=== PATIENT | male | born 1970 | race Caucasian/White ===

== ENCOUNTER 2016-08-18 21:40 | Emergency (ER) | payer OTHER ==
[~2016-08-18] VITALS: Ht 180.3 cm; Wt 84.4 kg
--- NOTE | 2016-08-18 22:25 | NUR ---
PT BIB SELF C/O DIARRHEA AND DIFFUSE ABD PAIN X1 WEEK. DENIES N/V. DENIES BLOOD IN STOOL. NAD NOTED. RESP EVEN UNLABORED. SKIN WARM NONDIAPHORETIC. IN ER BED 10.
[2016-08-18] MEDS ORDERED: HYDROMORPHONE INJ 2 MG/ML DISP.SYRIN IV ONE (23:00)
[2016-08-18] MEDS ORDERED: IV NS 0.9% 1,000 ML ONE (23:02)
[2016-08-18] MEDS ORDERED: IV SET PRIMARY 1 EA INFUS.SET MC ONE (23:02)
[2016-08-18] MEDS ORDERED: ONDANSETRON HCL/PF 4 MG/2 ML VIAL ONE (23:02)
[2016-08-18] MEDS ORDERED: HYDROMORPHONE 1 MG/1 ML DISP.SYRIN ONE (23:02)
[2016-08-18 23:21] LABS: BASOPHILS % (AUTO) 0.5 % (0.0-2.0); CALCIUM, SERUM 8.9 mg/dL (8.5-10.1); CARBON DIOXIDE 31 mmol/L (21-32); CHLORIDE 105 mmol/L (98-107); EOSINOPHILS % (AUTO) 0.8 % (0.0-6.0); GFR 80 mL/min (>60); GLUCOSE 111 mg/dL (74-106); HEMATOCRIT 45 % (39-51); LYMPHOCYTES % (AUTO) 33.1 % (20.0-44.0); MEAN CORPUSCULAR HEMOGLOBIN 29 PG (26.0-33.0); MEAN CORPUSCULAR HGB CONC 34 g/dl (31.0-36.0); MEAN CORPUSCULAR VOLUME 85 fL (80-96); MONOCYTES # (AUTO) 1.6 /CMM (0.1-1.30); MONOCYTES % (AUTO) 26.4 % (2.0-12.0); NEUTROPHILS # (AUTO) 2.4 /CMM (1.8-8.9); NEUTROPHILS % (AUTO) 39.2 % (43.0-81.0); PLATELET COUNT (AUTO) 262 /CMM (150-450); POTASSIUM 3.1 mmol/L (3.5-5.1); RDW COEFFICIENT OF VARIATION 13.1 (11.5-15.0); RED BLOOD CELL COUNT(AUTO) 5.23 MIL/uL (4.5-6.0); SODIUM SERUM 142 mmol/L (136-145); UREA NITROGEN, BLOOD 11 mg/dL (7-18); WHITE BLOOD COUNT (AUTO) 6.1 K/uL (4.3-11.0)
[2016-08-18 23:22] LABS: INR 1.01 (0.87-1.13); PROTHROMBIN TIME 10.8 SECS (9.5-12.7)
[2016-08-18 23:26] LABS: ALANINE AMINOTRANSFERASE 51 U/L (12-78); ALBUMIN 3.3 g/dL (3.4-5.0); ALKALINE PHOSPHATASE 74 U/L (46-116); ASPARTATE AMINOTRANSFERASE 28 U/L (15-37); BILIRUBIN,DIRECT 0.1 mg/dL (0.0-0.2); BILIRUBIN,TOTAL 0.4 mg/dL (0.2-1.0); LIPASE 147 U/L (73-393); TOTAL PROTEIN, SERUM 7.3 g/dL (6.4-8.2)
[2016-08-18 23:28] LABS: TROPONIN I < 0.017 ng/mL (0.00-0.056)
[2016-08-18] MEDS: IV NS 0.9% 1,000 ML BAG IV ONE (23:34)
[2016-08-18] MEDS: ONDANSETRON HCL/PF 4 MG/2 ML VIAL IVP ONE (23:34)
--- NOTE | 2016-08-18 23:35 | NUR ---
PT REFUSED DILAUDID AFTER HIS CALLED AND SPOKE WITH THE PT AND MYSELF VIA SPEAKERPHONE REQUESTING A NORCO INSTEAD OF IV PAIN MEDICATION. I EXPLAINED MULTIPLE TIMES THAT I COULD NOT WITHHOLD PAIN MEDICATION BECAUSE OF THE 'S REQUEST ALONE BUT IF THE PT CONSENTED TO PO MEDICATION IN LIEU OF IV, THAT WOULD LIKELY BE HONORED BY DR SHERIFF. PT THEN CONSENTED TO RECEIVING NORCO INSTEAD OF DILAUDID.
[2016-08-18] MEDS ORDERED: HYDROCODONE/APAP 5/325MG 1 EACH TABLET ONE (23:38)
[2016-08-18] MEDS: HYDROCODONE/APAP 5/325MG 1 EACH TABLET PO ONE (23:42)
--- NOTE | 2016-08-18 23:42 | NUR ---
PT RECIEVED PRANAY PER VERBAL ORDER
[2016-08-19] MEDS ORDERED: HYDROCODONE/APAP 10/325MG 1 EA TABLET PO ONE
[2016-08-19] MEDS: POTASSIUM CHLORIDE 20 MEQ TAB.PRT.SR PO ONE (00:09)
--- NOTE | 2016-08-19 00:09 | NUR ---
PT REFUSED POTASSIUM DESPITE EDUCATION. IV removed. Catheter intact and site benign. Pressure and 4x4 applied to site. No bleeding noted. Patient discharged to home in stable condition. Written and verbal after care instructions given. Patient verbalizes understanding of instruction. AMBULATORY WITH STEADY GAIT.
[2016-08-19 00:30] VITALS: BP 126/75
[2016-08-19 00:52] LABS: BAND % (MANUAL) 14 % (0.0-5.0); EOSINOPHILS % (MANUAL) 1 % (0-4); LYMPHOCYTES % (MANUAL) 48 % (16-48); MONOCYTES % (MANUAL) 23 % (0-11.0); NEUTROPHILS % (MANUAL) 14 (42-76)
== END 2016-08-19 00:31 | disposition home or self-care (01) ==
LOC: ER 21:40
DX: R10.84 Generalized abdominal pain (principal); R19.7 Diarrhea, unspecified; F31.9 Bipolar disorder, unspecified; J45.909 Unspecified asthma, uncomplicated
CPT/HCPCS: 36415; 76705-TC; 80048-TC; 80076-TC; 83690-TC; 84484-TC; 85025-TC; 85730-TC; A4606; J1170; J2405; J7030; Z7610

== ENCOUNTER 2025-01-25 16:45 | Emergency (ER) | payer MEDICARE, OTHER ==
[~2025-01-25] VITALS: Ht 180.3 cm; Wt 82.6 kg
[2025-01-25] MEDS ORDERED: LORAZEPAM 1 MG TABLET ONE (17:10)
[2025-01-25] MEDS: LORAZEPAM 1 MG TABLET PO ONE (17:15)
[2025-01-25] MEDS ORDERED: ESCI5TAB PO (17:19)
[2025-01-25 17:28] VITALS: BP 142/88; TEMP 97.8; O2SAT 97
[2025-01-25] MEDS ORDERED: ONDANSETRON 4 MG TAB.RAPDIS SL ONE (17:30)
== END 2025-01-25 17:28 | disposition home or self-care (01) ==
LOC: ER 16:45
DX: R45.83 Excessive crying of child, adolescent or adult (principal); F31.9 Bipolar disorder, unspecified; F41.9 Anxiety disorder, unspecified; J45.909 Unspecified asthma, uncomplicated; Z63.4 Disappearance and death of family member; Z79.899 Other long term (current) drug therapy